=== PATIENT | female | born 1960 | race African-American/Black ===

== ENCOUNTER 2023-04-18 21:52 | Inpatient (IN) | payer OTHER ==
[2023-04-18] MEDS ORDERED: niCARdipine 25 MG/10 ML SDV ONE (22:23)
[2023-04-18 22:26] LABS: #Eosinphils 0.3 thou/uL (0.0-0.7); #Monocytes 0.8 thou/uL (0.11-0.59); #Neutrophils 4.1 thou/uL (1.40-6.50); %Basophils 0.4 % (0.0-1.0); %Eosinophils 3.2 % (0.0-10.0); %Lymphocytes 38.4 % (21.0-51.0); %Monocytes 9.3 % (0.0-10.0); %Neutrophils 48.6 % (42.0-75.0); Hematocrit 39.8 % (36.0-47.0); Hemoglobin 13.3 g/dL (12.0-16.0); Mean Corpuscular HGB CONC 33.4 g/dL (32.0-36.0); Mean Corpuscular Hemoglobin 29.4 pg (27.0-31.0); Mean Corpuscular Volume 87.9 fl (78.0-98.0); Platelet Count 210 10x3/uL (130-400); RBC Distribution Width 13.2 % (11.5-14.5); Red Blood Cell (RBC) Count 4.53 mill/uL (4.20-5.40); White Blood Cell (WBC) Count 8.4 10x3/uL (4.8-10.8)
[2023-04-18 22:53] LABS: ALT (SGPT) 47 U/L (8-55); AST (SGOT) 43 U/L (5-34); Albumin 3.5 g/dL (3.5-5.0); Alkaline Phosphatase 72 U/L (40-110); Anion Gap 13 mmol/L (10-20); BUN (Urea Nitrogen) 25 mg/dL (9.8-20.1); Bilirubin, Total 0.2 mg/dL (0.2-1.2); Calc. Creatinine Clearance 0 mL/min (70-130); Calcium 8.6 mg/dL (7.8-10.44); Carbon Dioxide 26 mmol/L (22-29); Chloride 104 mmol/L (98-107); Estimated GFR 62; Glucose 88 mg/dL (70-105); Potassium 3.7 mmol/L (3.5-5.1); Sodium 139 mmol/L (136-145); Troponin I 0.056 ng/mL (< 0.028)
[2023-04-18 23:05] LABS: Globulin 4.1 g/dL (2.4-3.5); Protein, Total 7.5 g/dL (6.0-8.3)
[2023-04-18] MEDS ORDERED: Aspirin Chewable 81 MG TAB ONE (23:25)
[2023-04-19] MEDS ORDERED: Senokot S 8.6-50 MG TAB PO PRN (00:36)
[2023-04-19] MEDS ORDERED: Acetaminophen 325 MG TAB PO PRN (00:36)
[2023-04-19] MEDS ORDERED: Ondansetron ODT 4 MG TAB PO PRN (00:36)
[2023-04-19] MEDS ORDERED: Labetalol HCl 100 MG/20 ML VIAL SLOW IVP PRN (01:23)
[2023-04-19 01:26] VITALS: BMI 28.5
[2023-04-19] MEDS: niCARdipine 25 MG in Sodium Chloride 0.9% 250 ML 250 ML IVPB SCH ×2 (04:31→14:02)
[2023-04-19 04:45] LABS: #Eosinphils 0.3 thou/uL (0.0-0.7); #Monocytes 0.8 thou/uL (0.11-0.59); #Neutrophils 3.7 thou/uL (1.40-6.50); %Basophils 0.5 % (0.0-1.0); %Eosinophils 3.9 % (0.0-10.0); %Lymphocytes 36.6 % (21.0-51.0); %Neutrophils 48.6 % (42.0-75.0); Hematocrit 44.6 % (36.0-47.0); Hemoglobin 14.4 g/dL (12.0-16.0); Mean Corpuscular HGB CONC 32.3 g/dL (32.0-36.0); Mean Corpuscular Hemoglobin 28.6 pg (27.0-31.0); Mean Corpuscular Volume 88.5 fl (78.0-98.0); Mean Platelet Volume 10.4 fL (7.4-10.4); Platelet Count 221 10x3/uL (130-400); RBC Distribution Width 13.1 % (11.5-14.5); Red Blood Cell (RBC) Count 5.04 mill/uL (4.20-5.40); White Blood Cell (WBC) Count 7.6 10x3/uL (4.8-10.8)
[2023-04-19 05:05] LABS: Anion Gap 13 mmol/L (10-20); BUN (Urea Nitrogen) 18 mg/dL (9.8-20.1); Calc. Creatinine Clearance 77 mL/min (70-130); Calcium 9.6 mg/dL (7.8-10.44); Carbon Dioxide 23 mmol/L (22-29); Cardiac Risk 2.8 (Less than 4.5); Chloride 104 mmol/L (98-107); Cholesterol 210 mg/dl (< 200 Desired); Estimated GFR 70; Glucose 102 mg/dL (70-105); HDL Cholesterol 76 mg/dL (>60 Neg Risk); LDL Cholesterol, Calculated 118 mg/dL; Potassium 3.1 mmol/L (3.5-5.1); Sodium 137 mmol/L (136-145); Triglycerides 82 mg/dL (Less than 150)
[2023-04-19 05:10] LABS: Troponin I Less than 0.010 ng/mL (< 0.028)
[2023-04-19 05:11] LABS: Troponin I Less than 0.010 ng/mL (< 0.028)
[2023-04-19] MEDS: Famotidine 20 MG TAB PO SCH ×2 (08:27→20:22)
[2023-04-19] MEDS: Losartan/Hydrochlorothiazide 100 mg/25 mg Tablet PO SCH (08:27)
[2023-04-19] MEDS ORDERED: Amlodipine 5 MG TAB PO SCH (09:00)
[2023-04-19] MEDS: hydrALAZINE 20 MG/ML VIAL SLOW IVP PRN ×2 (09:48→13:46)
[2023-04-19] MEDS ORDERED: HYDROcodone/Acetaminophen 5/325 mg Tablet PO PRN (13:01)
[2023-04-19] MEDS: Carvedilol 6.25 MG TAB PO SCH (16:29)
[2023-04-19] MEDS ORDERED: GUAIFENESIN SF SOLN 200 MG/10 ML UDCUP PO PRN (19:44)
[2023-04-20 08:06] VITALS: BP 178/93; TEMP 97.8
[2023-04-20] MEDS ORDERED: Amlodipine 10 MG TAB PO SCH (09:00)
[2023-04-20] MEDS: Losartan/Hydrochlorothiazide 100 mg/25 mg Tablet PO SCH (09:46)
[2023-04-20] MEDS: Famotidine 20 MG TAB PO SCH (09:47)
[2023-04-20] MEDS: Carvedilol 6.25 MG TAB PO SCH (09:47)
== END 2023-04-20 12:30 | disposition home or self-care (01) | DRG 305 ==
LOC: ERS 21:52 → CCU 04-19 00:19 → 2NO 04-19 17:32
PROVIDERS: ADMIT Student in an Organized Health Care Education/Training Program; ATTEND Hospitalist
DX: I16.1 Hypertensive emergency (principal); F17.210 Nicotine dependence, cigarettes, uncomplicated; F32.A Depression, unspecified; R77.8 Other specified abnormalities of plasma proteins; E87.6 Hypokalemia; E78.5 Hyperlipidemia, unspecified; Z90.710 Acquired absence of both cervix and uterus
CPT/HCPCS: 36415; 70450; 71045; 80048; 80053; 80061; 84484; 85025; 93005; 93306; 96365; 96366; J0360; J7050